=== PATIENT | male | born 1950 | race Caucasian/White ===

== ENCOUNTER 2021-10-27 17:26 | Emergency (ER) | payer MEDICARE ==
[2021-10-27] MEDS ORDERED: Lidocaine 1% 5 ML VIAL INJECT ONE (17:50)
[2021-10-27] MEDS ORDERED: Bacitracin Oint 1 GM U/D Packet TOP ONE (18:46)
== END 2021-10-27 19:31 | disposition home or self-care (01) ==
LOC: JP.ED 17:26
DX: S62.636B Displaced fracture of distal phalanx of right little finger, initial encounter for open fracture (principal); W23.1XXA Caught, crushed, jammed, or pinched between stationary objects, initial encounter; Y99.0 Civilian activity done for income or pay
CPT/HCPCS: 11760; 12001; 13131; 73140-26-F9; 73140-F9; 99281; 99283-25